=== PATIENT | male | born 1980 | race Caucasian/White ===

== ENCOUNTER 2023-09-20 13:47 | Outpatient (CLI) | payer MEDICARE ==
[~2023-09-20 13:47] MED LIST: Magnevist 469MG/ML 20 ML VIAL ONE
== END 2023-09-20 13:48 | disposition home or self-care (01) ==
LOC: CSHMRI 13:47
PROVIDERS: ATTEND Psychiatry & Neurology Neurology
DX: G35 Multiple sclerosis (principal); R90.82 White matter disease, unspecified
CPT/HCPCS: 70553